=== PATIENT | female | born 1980 | race African-American/Black ===

== ENCOUNTER 2017-07-22 12:47 | Emergency (ER) | payer OTHER ==
--- NOTE | 2017-07-22 12:52 | PDOC ---
History of Present Illness - General Stated Complaint: ABD PAIN Time Seen by Provider: 07/22/17 12:52 - History of Present Illness Initial Comments: 07/22/17 13:50 Ms. Nguyen is a 37 yo female w/ pmh of endometriosis and fibroids BIBA with complaints of 10/10 abdominal pain. She reports that this AM she had a hysteroscopy with biopsy (confirmed with phone call to clinic where this was done) and that her pain started on the way home. She reports she vomited from the pain and called EMS when it did not subside. The patient denies chest pain, shortness of breath, headache and dizziness. Denies fever, chills, diarrhea and constipation. Denies dysuria, frequency, urgency and hematuria. Allergies: NKDA Past History - Past Medical History Allergies/Adverse Reactions: Allergies Allergy/AdvReac Type Severity Reaction Status Date / Time No Known Allergies Allergy Verified 07/22/17 13:23 Home Medications: Ambulatory Orders Ciprofloxacin [Cipro -] 500 mg PO Q12H #8 tablet 07/22/17 Review of Systems - Review of Systems Comments:: 07/22/17 13:53 GENERAL/CONSTITUTIONAL: No fever or chills. No weakness. HEAD, EYES, EARS, NOSE AND THROAT: No change in vision. No ear pain or discharge. No sore throat. CARDIOVASCULAR: No chest pain or shortness of breath RESPIRATORY: No cough, wheezing, or hemoptysis. GASTROINTESTINAL: +N/V as described with severe generalized pain. No diarrhea or constipation. GENITOURINARY: No dysuria, frequency, or change in urination. MUSCULOSKELETAL: No joint or muscle swelling or pain. No neck or back pain. SKIN: No rash NEUROLOGIC: No headache, vertigo, loss of consciousness, or change in strength/ sensation. ENDOCRINE: No increased thirst. No abnormal weight change HEMATOLOGIC/LYMPHATIC: No anemia, easy bleeding, or history of blood clots. ALLERGIC/IMMUNOLOGIC: No hives or skin allergy. *Physical Exam - Physical Exam Comments: 07/22/17 13:53 GENERAL: Awake, alert, and fully oriented, in no acute distress HEAD: No signs of trauma, normocephalic, atraumatic EYES: PERRLA, EOMI, sclera anicteric, conjunctiva clear ENT: Auricles normal inspection, hearing grossly normal, nares patent, oropharynx clear without exudates. Moist mucosa NECK: Normal ROM, supple, no lymphadenopathy, JVD, or masses LUNGS: No distress, speaks full sentences, clear to auscultation bilaterally HEART: Regular rate and rhythm, normal S1 and S2, no murmurs, rubs or gallops, peripheral pulses normal and equal bilaterally. ABDOMEN: +Generalized TTP. Soft, normoactive bowel sounds. No guarding, no rebound. No masses EXTREMITIES: Normal inspection, Normal range of motion, no edema. No clubbing or cyanosis. NEUROLOGICAL: Cranial nerves II through XII grossly intact. Normal speech, normal gait, no focal sensorimotor deficits SKIN: Warm, Dry, normal turgor, no rashes or lesions noted. ED Treatment Course - LABORATORY CBC & Chemistry Diagram: 07/22/17 13:15 07/22/17 13:15 Medical Decision Making - Critical Care Time Total Critical Care Time (minutes): 0 - Medical Decision Making 07/22/17 17:09 Ms. Nguyen is a 37 yo female w/ pmh as described who presents for evaluation of abdominal pain post hysteroscopy this AM. Given patient's symptoms post procedure, ct abdomen/pelvis ordered for evaluation. CT revealed "Nonspeicific apprximately [id number] heterogenous partially fluid dense structure within left inferior pelvis probably located within the left lateral half of the uterine body... 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 Bear Rankin who would like IV rocephin + ciprofloxacin given outpatient and to have patient follow-up at 8am tomorrow morning. Patient verbalized understanding and agreement and will comply. 07/22/17 17:42 Patient received Rocephin, sending cipro to pharmacy per plan and discharging. *DC/Admit/Observation/Transfer Diagnosis at time of Disposition: Abdominal pain Qualifiers: Abdominal location: unspecified location Qualified Code(s): R10.9 - Unspecified abdominal pain - Discharge Dispostion Disposition: HOME - Referrals Referrals: Joseph Rankin [Non Staff, Medical] - - Patient Instructions Printed Discharge Instructions: DI for Abdominal Pain-Adult Additional Instructions: Please follow-up with [facility] tomorrow at 8am as discussed. A prescription has been called to your pharmacy; please take all medications as proscribed. Return to ER if any fever, chills, increased pain, or other concerning symptoms. - Post Discharge Activity
[2017-07-22] MEDS ORDERED: ONDANSETRON 4 MG/2 ML VIAL IVPUSH ONE (13:21)
[2017-07-22 13:23] VITALS: BMI 20.5
[2017-07-22] MEDS ORDERED: morphine CARPU-JECT 2 MG/1 ML DISP.SYRIN ONE ×2 (13:23→16:48)
[2017-07-22 13:26] LABS: BASO % 0.3 % (0-2.0); EOS % 0.8 % (0-4.5); HEMOGLOBIN 13.5 GM/dL (10.7-15.3); LYMPH % 7.3 % (8-40); MCH 32.2 pg (25.7-33.7); MEAN CELL VOLUME 97.6 fl (80-96); MONO % 4.5 % (3.8-10.2); NEUT % 87.1 % (42.8-82.8); PLATELET COUNT 216 K/MM3 (134-434); RDW 14.6 % (11.6-15.6); WHITE BLOOD COUNT 18.9 K/mm3 (4.0-10.0)
[2017-07-22] MEDS ORDERED: morphine CARPU-JECT 2 MG/1 ML DISP.SYRIN IVPUSH ONE ×2 (13:36→16:15)
[2017-07-22 13:40] LABS: INR 1.04 (0.82-1.09); PROTHROMBIN TIME (PATIENT) 11.8 SEC (9.7-13.0)
[2017-07-22 13:42] LABS: ACTIVATED PTT 29.4 SECONDS (26.9-34.4)
[2017-07-22 13:51] LABS: ALBUMIN 4.2 g/dl (3.4-5.0); ANION GAP 10 (8-16); BILIRUBIN,TOTAL 0.4 mg/dL (0.2-1.0); BLOOD UREA NITROGEN 10 mg/dL (7-18); CALCIUM 8.9 mg/dL (8.5-10.1); CHLORIDE 108 mmol/L (98-107); CO2 23 mmol/L (21-32); CREATININE 0.9 mg/dL (0.55-1.02); GLUCOSE,RANDOM 95 mg/dL (74-106); POTASSIUM 3.8 mmol/L (3.5-5.1); SGOT/AST 13 U/L (15-37); SGPT/ALT 13 U/L (12-78); SODIUM 141 mmol/L (136-145); TOT PROT 7.8 g/dl (6.4-8.2)
[2017-07-22 13:52] LABS: ALK PHOS 60 U/L (45-117)
[2017-07-22] MEDS ORDERED: SODIUM CHLORIDE 1,000 ML IV STA (14:00)
--- NOTE | 2017-07-22 14:00 | PDOC ---
Attending Attestation - Resident Resident Name: Shaheed Moeller - ED Attending Attestation I have performed the following: I have examined & evaluated the patient, The case was reviewed & discussed with the resident, I agree w/resident's findings & plan, Exceptions are as noted - HPI HPI: 07/22/17 13:57 37 F with h/o endometriosis and uterine fibroids presents with abdominal pain. Pt was at [facility] earlier today for a hysteroscopy with biopsy. Shortly after the procedure was completed, pt began to experience lower abdominal pain. Pt reports severe 9/10 pain associated with vomiting. She denies diarrhea. Denies F/C. Denies vaginal discharge or bleeding. - Physicial Exam PE: 07/22/17 13:58 "GENERAL: Awake, alert, and fully oriented, in no acute distress. HEAD: No signs of trauma EYES: PERRLA, EOMI, sclera anicteric, conjunctiva clear ENT: Auricles normal inspection, hearing grossly normal, nares patent, oropharynx clear without exudates. Moist mucosa NECK: Nontender, no stepoffs, Normal ROM, supple, no lymphadenopathy, JVD, or masses LUNGS: Breath sounds equal, clear to auscultation bilaterally. No wheezes, and no crackles HEART: Regular rate and rhythm, normal S1 and S2, no murmurs, rubs or gallops ABDOMEN: + suprapubic TTP, normoactive bowel sounds. No guarding, no rebound. No masses EXTREMITIES: Normal range of motion, no edema. No clubbing or cyanosis. No cords, erythema, or tenderness NEUROLOGICAL: Cranial nerves II through XII intact. 5/5 strength and sensation in all extremities, Normal speech, normal gait, normal cerebellar function SKIN: Warm, Dry, normal turgor, no rashes or lesions noted. : no blood or abnormal discharge, no CMT, os closed - Medical Decision Making 07/22/17 13:59 37 F with abdominal pain s/p hysteroscopy and biopsy. Likely normal cramping 2/ 2 procedure. However, will r/o perforation given severity of pt's pain. 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 07/22/17 17:10 Spoke with pt's OB, Dr. Caro, who confirms that this mass in L pelvis is known. He states he will see pt in his office tomorrow morning. Pt reassessed - pain is now well controlled. Pt is well appearing, with normal vitals. Clinically stable for DC at this time. I discussed the physical exam findings, ancillary test results and final diagnoses with the patient. I answered all of the patient's questions. The patient was satisfied with the care received and felt comfortable with the discharge plan and treatment plan. The patient agrees to follow up with the primary care physician within 24-72 hours.
[2017-07-22 14:04] LABS: URINE APPEARANCE CLEAR; URINE BILIRUBIN NEGATIVE (<2.0 mg/dL); URINE COLOR LTYELLOW; URINE GLUCOSE (UA) NEGATIVE (NEGATIVE); URINE KETONE 1+ (NEGATIVE); URINE LEUK ESTERASE NEGATIVE (NEGATIVE); URINE NITRITE NEGATIVE (NEGATIVE); URINE PROTEIN NEGATIVE (NEGATIVE); URINE UROBILINOGEN NEGATIVE mg/dL (0.2-1.0)
[2017-07-22 14:09] LABS: URINE BACTERIA RARE /hpf (NONE SEEN); URINE MUCUS RARE
[2017-07-22] MEDS ORDERED: CEFTRIAXONE 1,000 MG in DEXTROSE 5%-WATER - 50 ML IVPB ONE (17:13)
[2017-07-22] MEDS ORDERED: CEFTRIAXONE 1 GM/50 ML BAG ONE (17:18)
[2017-07-22 18:09] VITALS: BP 104/51; PULSE 73; TEMP 98.7
== END 2017-07-22 18:08 | disposition home or self-care (01) ==
LOC: JER 12:47
PROC: 3E03329 Introduction of Other Anti-infective into Peripheral Vein, Percutaneous Approach (ICD-10-PCS; principal; 2017-07-22)
PROC: 3E033NZ Introduction of Analgesics, Hypnotics, Sedatives into Peripheral Vein, Percutaneous Approach (ICD-10-PCS; 2017-07-22)
PROC: 3E033GC Introduction of Other Therapeutic Substance into Peripheral Vein, Percutaneous Approach (ICD-10-PCS; 2017-07-22)
PROC: 3E0337Z Introduction of Electrolytic and Water Balance Substance into Peripheral Vein, Percutaneous Approach (ICD-10-PCS; 2017-07-22)
DX: R11.2 Nausea with vomiting, unspecified (principal); N80.9 Endometriosis, unspecified; Z98.890 Other specified postprocedural states
CPT/HCPCS: 36415; 72193-TC; 74160-TC; 80053; 81003; 81015; 84703; 85025; 85610; 85730; 86850; 86900; 86901; 87086; 96361; 96365; 96375; 96376; 99282-25; J7030